=== PATIENT | male | born 1995 | race Caucasian/White ===

== ENCOUNTER 2017-08-25 14:29 | Emergency (ER) | payer BC, OTHER ==
[~2017-08-25] VITALS: Ht 177.8 cm; Wt 80.1 kg
[2017-08-25 14:36] VITALS: Ht 177.8 cm; Wt 80.1 kg
--- NOTE | 2017-08-25 14:47 | ERD ---
ER Documentation Chief Complaint Chief Complaint urinary retention/dysuria pt with counselor who will take him to rehab [facility] . The patient is a 22-year-old male, presenting to the ER because of acute urinary retention. He drank 8 hours of Robitussin-DM yesterday to get high. He went to rehab today where he was sent to the ER with the counselor because of acute dysuria and acute urinary retention. He denies auditory/visual hallucination, suicidal/homicidal ideation, headache, neck pain, chest pain, abdominal pain, vomiting, diarrhea. He does not smoke nor drink nor does any other illicit drug Past medical/surgical history: None ROS All systems reviewed and are negative except as per history of present illness. Physical Exam Vitals Vital Signs Date Time Temp Pulse Resp B/P Pulse Ox O2 Delivery O2 Flow Rate FiO2 08/25/17 14:36 98.1 78 18 126/76 99 Physical Exam Const: No acute distress. Head: Atraumatic. Eyes: Normal Conjunctiva. ENT: Normal External Ears, Nose and Mouth. Neck: Full range of motion. No meningismus. Resp: Clear to auscultation bilaterally. Cardio: Regular rate and rhythm. Abd: Soft, distended urinary bladder, normal bowel sounds, non tender. Skin: No petechiae or rashes. Back: No midline or flank tenderness. Ext: No cyanosis, or edema. Neur: Awake and alert. No focal deficit Psych: Normal Mood and Affect. Result Diagram: 08/25/17 1515 08/25/17 1515 Results 24 hrs Laboratory Tests Test 08/25/17 14:58 08/25/17 15:15 Bedside Urine pH (LAB) 5.5 Bedside Urine Protein (LAB) Negative Bedside Urine Glucose (UA) Negative Bedside Urine Ketones (LAB) Negative Bedside Urine Blood Negative Bedside Urine Nitrite (LAB) Negative Bedside Urine Leukocyte Esterase (L Negative White Blood Count 9.010^3/ul Red Blood Count 4.1710^6/ul Hemoglobin 12.1g/dl Hematocrit 36.2% Mean Corpuscular Volume 86.8fl Mean Corpuscular Hemoglobin 29.0pg Mean Corpuscular Hemoglobin Concent 33.4g/dl Red Cell Distribution Width 12.2% Platelet Count 01580^3/UL Mean Platelet Volume 10.9fl Neutrophils % 85.8% Lymphocytes % 7.4% Monocytes % 5.4% Eosinophils % 0.9% Basophils % 0.3% Nucleated Red Blood Cells % 0.0/100WBC Neutrophils # 7.710^3/ul Lymphocytes # 0.710^3/ul Monocytes # 0.510^3/ul Eosinophils # 0.110^3/ul Basophils # 0.010^3/ul Nucleated Red Blood Cells # 0.010^3/ul Sodium Level 137mmol/L Potassium Level 3.7mmol/L Chloride Level 102mmol/L Carbon Dioxide Level 28mmol/L Anion Gap 11 Blood Urea Nitrogen 10mg/dl Creatinine 0.97mg/dl Glucose Level 104mg/dl Calcium Level 8.9mg/dl Total Bilirubin 0.6mg/dl Direct Bilirubin 0.00mg/dl Indirect Bilirubin 0.6mg/dl Aspartate Amino Transf (AST/SGOT) 28IU/L Alanine Aminotransferase (ALT/SGPT) 37IU/L Alkaline Phosphatase 43IU/L Total Protein 6.9g/dl Albumin 4.1g/dl Globulin 2.80g/dl Albumin/Globulin Ratio 1.46 Urine Opiates Screen Positive Urine Barbiturates Positive Urine Amphetamines Screen Negative Urine Benzodiazepines Screen Negative Urine Cocaine Screen Negative Urine Cannabinoids Negative Ethyl Alcohol Level < 10.0mg/dl Procedures/MDM . MEDICAL MAKING DECISION: The patient is a 22-year-old male, presenting with acute urinary retention, acute opioid and dexamethasone abuse. A Whitt catheter was inserted and drained about 900 mL of urine with spontaneous relief. I recommended to keep the Whitt catheter until he f/u with urologist but he declined. Risks, benefits, alternatives were explained to the patient. Risks include but not limited to and permanent disability The differential diagnoses considered include but are not limited to cystitis, urethral stricture, cystitis, neurogenic bladder Departure Diagnosis: Primary Impression: Retention of urine Additional Impression: Opioid abuse Condition: Good Comments I discussed the findings with the patient. I advised the patient to follow-up with the primary physician and urologist in about 1-2 days, sooner if needed and return if any concern. Disclaimer: Inadvertent spelling and grammatical errors are likely due to EHR/ dictation software use and do not reflect on the overall quality of patient care. Also, please note that the electronic time recorded on this note does not necessarily reflect the actual time of the patient encounter. TYRA LANGLEY MD Aug 25, 2017 14:47
[2017-08-25 15:00] LABS: URINE BLOOD (Dip) POC Negative (NEGATIVE)
[2017-08-25 15:26] LABS: BASOPHILS % 0.3 % (0.0-2.0); EOSINOPHILS # 0.1 10^3/ul (0.0-0.5); EOSINOPHILS % 0.9 % (0.0-7.0); HEMATOCRIT 36.2 % (42.0-52.0); HEMOGLOBIN 12.1 g/dl (14.0-18.0); LYMPHOCYTES # 0.7 10^3/ul (0.8-2.9); LYMPHOCYTES % 7.4 % (18.0-55.0); MEAN CORPUSCULAR HGB CONC 33.4 g/dl (32.0-37.0); MEAN CORPUSCULAR VOLUME 86.8 fl (72.0-104.0); MEAN PLATELET VOLUME 10.9 fl (7.4-10.4); MONOCYTE # 0.5 10^3/ul (0.3-0.9); MONOCYTES % 5.4 % (0.0-13.0); NEUTROPHIL # 7.7 10^3/ul (1.6-7.5); NEUTROPHILS % 85.8 % (30.0-74.0); PLATELET COUNT 151 10^3/UL (140-415); RED BLOOD COUNT 4.17 10^6/ul (4.70-6.10); RED CELL DISTRIBUTION WIDTH 12.2 % (11.5-14.5)
[2017-08-25 15:48] LABS: BARBITURATES Positive (NEGATIVE); CANNABINOIDS Negative (NEGATIVE); OPIATES Positive (NEGATIVE)
[2017-08-25 15:52] LABS: BENZODIAZEPINES Negative (NEGATIVE); COCAINE Negative (NEGATIVE)
[2017-08-25 15:55] LABS: ALANINE AMINOTRANSFERASE 37 IU/L (13-69); ALBUMIN 4.1 g/dl (3.3-4.9); ALBUMIN/GLOBULIN RATIO 1.46; ALKALINE PHOSPHATASE 43 IU/L (42-121); ANION GAP 11 (8-16); ASPARTATE AMINO TRANSFERASE 28 IU/L (15-46); BILIRUBIN,INDIRECT 0.6 mg/dl (0-1.1); BILIRUBIN,TOTAL 0.6 mg/dl (0.2-1.3); BLOOD UREA NITROGEN 10 mg/dl (7-20); CALCIUM 8.9 mg/dl (8.4-10.2); CARBON DIOXIDE 28 mmol/L (21-31); CHLORIDE 102 mmol/L (97-110); CREATININE 0.97 mg/dl (0.61-1.24); GLUCOSE 104 mg/dl (70-220); POTASSIUM 3.7 mmol/L (3.5-5.1); SODIUM 137 mmol/L (135-144); TOTAL PROTEIN 6.9 g/dl (6.1-8.1)
[2017-08-25 15:58] LABS: ETHANOL < 10.0 mg/dl
[2017-08-25 16:30] VITALS: BP 122/70; PULSE 88; RESP 18; TEMP 98.1
== END 2017-08-25 16:34 | disposition home or self-care (01) ==
LOC: E/R 14:29
DX: R33.9 Retention of urine, unspecified (principal); F11.10 Opioid abuse, uncomplicated
CPT/HCPCS: 36415; 80053; 80306; 80307; 81003; 85025